=== PATIENT | female | born 1935 | race Caucasian/White ===

== ENCOUNTER → 2017-02-09 | Outpatient (CLI) | payer MEDICARE ==
[~2017-02-09] MED LIST: ATOR10 PO; COZA50TA PO; FOLBTAB4 PO; LORT5TAB PO; PREM0.3T PO
--- NOTE | 2017-02-15 07:46 | HM ---
Date Performed: 02/09/2017 Time Performed: 08:33:00 HOOKUP DATE: 02/09/17 08:33:00 AM [facility] ANALYSIS START TIME: 02/09/2017 8:38:00 AM ANALYSIS END TIME: 02/10/2017 8:41:59 AM PATIENT AGE: 82 PATIENT HEIGHT PATIENT WEIGHT DRUG LIST PATIENT DIAGNOSIS: heart palpitations TEST NARRATIVE: The patient's average heart rate was 77 BPM. No episodes of tachycardia wer e noted. No episodes of bradycardia were noted. No pauses exceeding 2.0 seconds were noted. 60 ventricular ectopics, which represented < 1% of the total beat count, were noted. The highest jamison tricular ectopic frequency occurred from 09:00 AM to 10:00 AM Vaishnavi. During this time 26 VE(s) occurre d. Ventricular ectopics were observed as 60 isolated beat(s) only. No couplets or runs were noted. Some of the ventricular beats occurred in bigeminal cycles. 2 supraventricular ectopics, which r epresented < 1% of the total beat count, were noted. The highest supraventricular ectopic frequency occurred from 12:00 AM to 01:00 AM Fri. During this time 1 SVE(s) occurred. No episodes of ST de pression (defined as -1.0 mm or more) were noted in channel 1. No episodes of ST depression (defined as -1.0 mm or more) were noted in channel 2. No episodes of ST depression (defined as -1.0 mm or mo re) were noted in channel 3. TEST INTERPRETATION: I agree with the narrative. Patient had diary kept which had no significant entries. Patient had rare PVCs which do occur in a bigeminy and trigeminy cycle when occurring, and generally between 9 and 12 am. There seems to be no awareness of PVCs according to patient diary. No complex PVCs were seen. No pauses or other complex atrial arrhythmias present with only very rare PAC s present. Overall, this a very benign appearing holter monitor with no patient symptoms. Signed by : David Tony
== END ==
LOC: HCAV 10:10
PROVIDERS: ATTEND Family Medicine
DX: R00.2 Palpitations (principal)
CPT/HCPCS: 93225; 93226